=== PATIENT | female | born 2000 | race Caucasian/White ===

== ENCOUNTER 2021-08-19 20:36 | Emergency (ER) | payer MEDICAID, SELFPAY ==
[2021-08-19 22:00] VITALS: BP 105/63; PULSE 76; RESP 16; TEMP 37.1; O2SAT 99; BMI 27.4
--- NOTE | 2021-08-19 22:17 | ED.EAR ---
HPI - Ear Problem General Chief complaint: Ear Problems Stated complaint: bleeding from ear Time Seen by Provider: 08/19/21 21:49 Source: patient Mode of arrival: ambulatory Limitations: no limitations History of Present Illness HPI Narrative: Patient was cleaning her ear with Q-tip 3 days ago and noticed some blood on the left side none since then also complaining of tinnitus with similar history of in the past. Patient has deafness worried about damage to the ER for the no active here bleeding at this time Related Data Allergies Allergy/AdvReac Type Severity Reaction Status Date / Time No Known Allergies Allergy Unverified 08/06/20 19:41 [No Known Allergies*] Review of Systems Review of Systems: Yes all other systems are reviewed and are negative PMFSH Social History Social History Advance Directives: No Advance Directives Information Provided: Yes Physical Exam Vital Signs: Vital Signs: Last Vital Signs Temp 98.8 F 08/19/21 22:00 Pulse 76 08/19/21 22:00 Resp 16 08/19/21 22:00 BP 105/63 08/19/21 22:00 Pulse Ox 99 08/19/21 22:00 Body Mass Index 27.4 Const: General: no acute distress HENMT: Ears: hearing grossly normal bilaterally, external ears normal, TM's normal bilaterally, EAC's normal and mastoids normal Face and sinus: Yes normal facial exam Mouth: Normal oral and palatal mucosa present Resp: Effort & Inspection: normal respiratory effort Auscultation: clear to auscultation bilaterally Cardio: Palpation: normal PMI Rate: regular rate Rhythm: regular rhythm Heart sounds: S1 normal heart sound present and S2 normal heart sound present MDM - Ear MDM Narrative Medical decision making narrative: Patient claims some blood from the left ear 3 days ago after using the Q-tip at this time on exam so there is no signs of injuries tympanic membrane intact patient reassured that there is no damage to the Ear. About tinnitus which she had history of the same in the past advised to use headphones and follow with PCP/ENT Discharge Plan Discharge Clinical Impression: Tinnitus Patient Disposition: Home, Self-Care Instructions: Tinnitus (ED) Additional Instructions: Care as advised Use headphones No bleeding noticed in the Ear Interventions: ED Discharge Assessment Last Done: 08/19/21 22:27 Discharge Date/Time: 08/19/21 22:28
== END 2021-08-19 22:28 | disposition home or self-care (01) ==
PROVIDERS: Emergency Provider Internal Medicine
DX: H93.13 Tinnitus, bilateral (principal); H92.03 Otalgia, bilateral
CPT/HCPCS: 99283

== ENCOUNTER 2021-11-11 13:46 | Outpatient (REF) | payer MEDICAID, SELFPAY | END 2021-11-11 13:47 | disposition home or self-care (01) | LOC: HO.LAB 13:46 | PROVIDERS: Visit Provider Internal Medicine | DX: Z20.822 Contact with and (suspected) exposure to COVID-19 (principal) | CPT/HCPCS: C9803; U0003; U0005 ==